=== PATIENT | male | born 1965 | race Caucasian/White ===

== ENCOUNTER 2016-06-30 10:53 | Day surgery (SDC) | payer OTHER ==
[~2016-06-30] VITALS: Ht 175.3 cm; Wt 98.5 kg
[~2016-06-30 10:53] MED LIST: NEXIUM 40MG40 MG PO; ZOCOR 20MG20 MG PO; ZOCOR40 MG PO
[2016-06-30 11:24] VITALS: BP 107/85; PULSE 83; TEMP 97.8
[2016-06-30] MEDS ORDERED: PREVACID24HROTC PO (11:32)
[2016-06-30 13:45] VITALS: BP 111/63; PULSE 79
[2016-06-30 14:00] VITALS: BP 120/82; PULSE 81
[2016-06-30 14:52] VITALS: BP 100/69; PULSE 68
== END 2016-06-30 14:20 | disposition home or self-care (01) ==
LOC: SDCO 10:53
DX: Z12.11 Encounter for screening for malignant neoplasm of colon (principal); Z80.0 Family history of malignant neoplasm of digestive organs; K21.0 Gastro-esophageal reflux disease with esophagitis; K44.9 Diaphragmatic hernia without obstruction or gangrene
CPT/HCPCS: 43239; G0105; J2250; J3010; J7030